=== PATIENT | male | born 1980 | race Caucasian/White ===

== ENCOUNTER 2018-09-17 21:28 | Emergency (ER) | payer SELFPAY ==
[~2018-09-17] VITALS: Ht 172.7 cm; Wt 88.0 kg
== END 2018-09-17 22:20 | disposition home or self-care (01) ==
LOC: FSED 21:28
DX: H57.11 Ocular pain, right eye (principal); H00.012 Hordeolum externum right lower eyelid; E11.9 Type 2 diabetes mellitus without complications
CPT/HCPCS: 99282